=== PATIENT | female | born 1990 | race Hispanic/Latino ===

== ENCOUNTER 2016-12-21 08:34 | Emergency (ER) | payer BC ==
[~2016-12-21] VITALS: Ht 157.5 cm; Wt 63.0 kg
[2016-12-21 09:04] LABS: HEMATOCRIT 42.2 % (37.0-47.0); HEMOGLOBIN 13.7 g/dl (12.0-16.0); IMMATURE GRANULOCYTES 0.2 % (0.0-1.0); MEAN CELL VOLUME 89.2 fL CALC (80.0-100.0); MEAN CORPUSCULAR HGB CONC 32.5 g/L CALC (32.0-36.0); NEUT# 3.59 thou/uL (2.00-7.15); RED BLOOD COUNT 4.73 mill/uL (4.20-5.60); RED CELL DISTRI WIDTH 13.8 % (11.5-15.5)
[2016-12-21 09:17] LABS: ALBUMIN 4.8 g/dL (3.2-5.0); ALKALINE PHOSPHATASE 77 u/l (38-126); ANION GAP 17 (6-22 (CALC)); BILIRUBIN, TOTAL 0.7 mg/dL (0.0-1.4); BUN 9 mg/dL (7-17); BUN/CREATININE RATIO 13 (12-20 (CALC)); CALCIUM 9.7 mg/dL (8.4-10.2); CARBON DIOXIDE 25 mmol/l (22-30); CHLORIDE 107 mmol/l (95-108); CREATININE 0.7 mg/dL (0.5-1.0); GFR > 60 ML/MIN (>=60 (CALC)); GFR FOR AFR.AMER. > 60 ML/MIN (>=60 (CALC)); GLUCOSE 118 mg/dL (65-105); POTASSIUM 3.7 mmol/l (3.5-5.1); SGOT/AST 24 u/l (14-36); SGPT/ALT 32 u/l (9-52); SODIUM 145 mmol/l (137-146); TOTAL PROTEIN 7.9 g/dL (6.3-8.2)
[2016-12-21 09:29] LABS: MYOGLOBIN 19 ng/mL (0 - 62)
[2016-12-21] MEDS ORDERED: XANAX0.25 MG PO (09:34)
[2016-12-21 09:40] VITALS: BP 125/82
== END 2016-12-21 09:47 | disposition home or self-care (01) | DRG 204 ==
LOC: ED 08:34
PROVIDERS: Emergency Medicine
DX: R06.00 Dyspnea, unspecified (principal); F41.9 Anxiety disorder, unspecified

== ENCOUNTER 2017-08-08 00:19 | Emergency (ER) | payer BC ==
[~2017-08-08] VITALS: Ht 157.5 cm; Wt 64.2 kg
[~2017-08-08 00:19] MED LIST: XANAX0.25 MG PO
[2017-08-08 01:48] LABS: HEMATOCRIT 38.1 % (37.0-47.0); HEMOGLOBIN 12.1 g/dl (12.0-16.0); IMMATURE GRANULOCYTES 0.3 % (0.0-1.0); MEAN CELL VOLUME 89.4 fL CALC (80.0-100.0); MEAN CORPUSCULAR HGB 28.4 pG CALC (26.0-32.0); MEAN CORPUSCULAR HGB CONC 31.8 g/L CALC (32.0-36.0); NEUT# 4.37 thou/uL (2.00-7.15); RED BLOOD COUNT 4.26 mill/uL (4.20-5.60); RED CELL DISTRI WIDTH 14.1 % (11.5-15.5)
[2017-08-08 01:49] LABS: URINE BILIRUBIN - DIPSTICK NEGATIVE (NEGATIVE); URINE BLOOD DIPSTICK NEGATIVE (NEGATIVE); URINE COLOR YELLOW; URINE GLUCOSE - DIPSTICK NEGATIVE (NEGATIVE); URINE KETONE TRACE mg/dL (NEGATIVE); URINE LEUK ESTERASE NEGATIVE (NEGATIVE); URINE NITRITE - DIPSTICK NEGATIVE (Negative); URINE PH 5.5 (4.5-8.0); URINE PROTEIN - DIPSTICK NEGATIVE (NEG-TRACE); URINE UROBILINOGEN - DIPSTICK 0.2 E.U./dL (0.2)
[2017-08-08 01:53] LABS: URINE CLARITY SL CLOUDY
[2017-08-08 02:15] LABS: ALBUMIN 4.1 g/dL (3.2-5.0); ALKALINE PHOSPHATASE 74 u/l (38-126); ANION GAP 16 (6-22 (CALC)); BILIRUBIN, TOTAL 0.5 mg/dL (0.0-1.4); BUN 10 mg/dL (7-17); BUN/CREATININE RATIO 15 (12-20 (CALC)); CARBON DIOXIDE 25 mmol/l (22-30); CHLORIDE 102 mmol/l (95-108); CREATININE 0.6 mg/dL (0.5-1.0); GFR > 60 ML/MIN (>=60 (CALC)); GFR FOR AFR.AMER. > 60 ML/MIN (>=60 (CALC)); POTASSIUM 3.6 mmol/l (3.5-5.1); SGOT/AST 36 u/l (14-36); SGPT/ALT 46 u/l (9-52); SODIUM 139 mmol/l (137-146); TOTAL PROTEIN 7.1 g/dL (6.3-8.2)
[2017-08-08 02:39] VITALS: BP 125/74
== END 2017-08-08 02:41 | disposition home or self-care (01) | DRG 312 ==
LOC: ED 00:19
PROVIDERS: Emergency Medicine
DX: R55 Syncope and collapse (principal)